=== PATIENT | male | born 2005 | race Caucasian/White ===

== ENCOUNTER → 2023-08-31 09:53 | Outpatient (REF) | payer BC, SELFPAY | LOC: RCS 09:53 | PROVIDERS: ATTENDING PHYSICIAN Internal Medicine Interventional Cardiology; FAMILY PHYSICIAN Family Medicine | DX: R00.2 Palpitations (principal); R07.89 Other chest pain; R06.09 Other forms of dyspnea; R42 Dizziness and giddiness | CPT/HCPCS: 93017 ==

== ENCOUNTER → 2023-09-05 16:46 | Outpatient (REF) | payer BC, SELFPAY | LOC: RCS 16:46 | PROVIDERS: ATTENDING PHYSICIAN Internal Medicine Interventional Cardiology; FAMILY PHYSICIAN Family Medicine | DX: R00.2 Palpitations (principal); R07.89 Other chest pain; R06.09 Other forms of dyspnea; R42 Dizziness and giddiness | CPT/HCPCS: 93306 ==

== ENCOUNTER → 2023-10-31 11:43 | Outpatient (REF) | payer BC, SELFPAY | LOC: RAD 11:43 | PROVIDERS: ATTENDING PHYSICIAN Family Medicine | DX: R07.81 Pleurodynia (principal) | CPT/HCPCS: 71101 ==